=== PATIENT | male | born 1945 | race Caucasian/White ===

== ENCOUNTER 2017-06-26 11:26 | Emergency (ER) | payer OTHER ==
[~2017-06-26] VITALS: Ht 175.3 cm; Wt 95.2 kg
[~2017-06-26 11:26] MED LIST: ASPEC81 PO; ATOR-24 PO; LISI-725 PO; METO-217 PO; PRLSR20 PO
[2017-06-26 11:30] VITALS: Ht 175.3 cm; Wt 95.2 kg
--- NOTE | 2017-06-26 12:03 | EMERGENCY ROOM VISIT NOTE ---
History Report prepared by Jeanne: Sekou Garcia Under the Supervision of: Dr. Merle Patel D.O. First contact with patient: 11:36 Chief Complaint: CHEST PAIN Stated Complaint: CHEST DISCOMFORT Nursing Triage Summary: pt reports chest pain when doing nothing has hx of stents. blocked 20%. pain starts just above heart radiates up neck and into left shoulder . nitro 2nd dose helped pain 1st dose did nothing. feels nauseated. pt reports pain has been ongoing for approx 1 month. "pain happens when sitting still but does not bother him when working, cutting down trees." History of Present Illness The patient is a 71 year old male who presents to the Emergency Room with complaints of intermittent left side chest pain that occurred prior to arrival while feeding donkeys [place]. He states that he does not take any medication to resolve the symptoms. He states pain radiates up to his neck and into his left shoulder. Patient denies any pain in arms and back. Patient adds that he has had this pain for the past 3 weeks but it has not been during exertion but during rest and typically resolves itself after an amount of time, but today it remained longer than usual. He states he has a history of 5 cardiac stents. 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 In addition, he states that he associated urinary problems. He describes it as "feeling like he has to push it out". Source of History: patient Onset: 1 day ago Position: chest Timing: intermittent Associated Symptoms: + neck pain, + urinary symptoms (feels like "he has to push it out") Review of Systems See HPI for pertinent positives & negatives. A total of 10 systems reviewed and were otherwise negative. 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 Family History FHx: heart disease Social History Smoking Status: Never Smoker Alcohol Use: none Marital Status: Housing Status: lives with significant other Current/Historical Medications Scheduled Aspirin (Aspirin Ec), 81 MG PO AMPM Atorvastatin (Lipitor), 40 MG PO DAILY Lisinopril/Hctz (Zestoretic 20MG/12.5MG), 1 TAB PO DAILY Metoprolol Succinate (Toprol Xl), 50 MG PO DAILY Allergies Coded Allergies: No Known Allergies (Verified , 09/19/15) Physical Exam Vital Signs Date Time Temp Pulse Resp B/P (MAP) Pulse Ox O2 Delivery O2 Flow Rate FiO2 06/26/17 15:52 36.7 62 18 143/70 96 06/26/17 14:44 143/70 06/26/17 13:36 62 18 140/76 06/26/17 12:09 73 06/26/17 11:30 36.7 86 18 179/80 96 Room Air Physical Exam GENERAL: alert, well appearing, well nourished, no distress, non-toxic HEENT: Poor dentition. EYE EXAM: normal conjunctiva, PERRL and EOM's grossly intact OROPHARYNX: no exudate, no erythema, lips, buccal mucosa, and tongue normal and mucous membranes are moist NECK: supple, no nuchal rigidity, no adenopathy, non-tender LUNGS: Clear to auscultation. Normal chest wall mechanics CHEST: No reproducible chest and shoulder pain. HEART: no murmurs, S1 normal and S2 normal ABDOMEN: abdomen soft, non-tender, normo-active bowel sounds, no masses, no rebound or guarding. BACK: Back is symmetrical on inspection and there is no deformity, no midline tenderness, no CVA tenderness. 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 SKIN: no rashes and no bruising UPPER EXTREMITIES: upper extremities are grossly normal. LOWER EXTREMITIES: No pitting edema. NEURO EXAM: Normal sensorium, cranial nerves II-XII grossly intact, normal speech, no gross weakness of arms, no gross weakness of legs. Medical Decision & Procedures ER Provider Diagnostic Interpretation: Radiology results have been interpreted by the radiologist and reviewed by me. CHEST 2 VIEWS ROUTINE CLINICAL HISTORY: chest pain pain COMPARISON STUDY: 09/17/2015 FINDINGS: No evidence for cardiac enlargement. Mild emphysematous change. Increased density medial aspect right base felt to be prior to overlap artifact and is similar compared to the prior study. IMPRESSION: Emphysematous change. No acute process. The above report was generated using voice recognition software. It may contain grammatical, syntax or spelling errors. Electronically signed by: Rj Fan M.D. 06/26/2017 12:59 PM Laboratory Results 06/26/17 11:55 Red Blood Count 5.24, Mean Corpuscular Volume 89.3, Mean Corpuscular Hemoglobin 32.3, Mean Corpuscular Hemoglobin Concent 36.1, Mean Platelet Volume 11.6, Neutrophils (%) (Auto) 69.5, Lymphocytes (%) (Auto) 21.9, Monocytes (%) (Auto) 7.2, Eosinophils (%) (Auto) 0.9, Basophils (%) (Auto) 0.3, Neutrophils # (Auto) 4.07, Lymphocytes # (Auto) 1.28, Monocytes # (Auto) 0.42, Eosinophils # (Auto) 0.05, Basophils # (Auto) 0.02 06/26/17 11:55 Test 06/26/17 11:55 06/26/17 15:18 White Blood Count 5.85 K/uL (4.8-10.8) Red Blood Count 5.24 M/uL (4.7-6.1) Hemoglobin 16.9 g/dL (14.0-18.0) Hematocrit 46.8 % (42-52) Mean Corpuscular Volume 89.3 fL (80-100) Mean Corpuscular Hemoglobin 32.3 pg (25-34) Mean Corpuscular Hemoglobin Concent 36.1 g/dl (32-36) Platelet Count 146 K/uL (130-400) Mean Platelet Volume 11.6 fL (7.4-10.4) Neutrophils (%) (Auto) 69.5 % Lymphocytes (%) (Auto) 21.9 % Monocytes (%) (Auto) 7.2 % Eosinophils (%) (Auto) 0.9 % Basophils (%) (Auto) 0.3 % Neutrophils # (Auto) 4.07 K/uL (1.4-6.5) Lymphocytes # (Auto) 1.28 K/uL (1.2-3.4) Monocytes # (Auto) 0.42 K/uL (0.11-0.59) Eosinophils # (Auto) 0.05 K/uL (0-0.5) Basophils # (Auto) 0.02 K/uL (0-0.2) RDW Standard Deviation 41.9 fL (36.4-46.3) RDW Coefficient of Variation 12.9 % (11.5-14.5) Immature Granulocyte % (Auto) 0.2 % Immature Granulocyte # (Auto) 0.01 K/uL (0.00-0.02) Prothrombin Time 11.4 SECONDS (9.0-12.0) Prothromb Time International Ratio 1.1 (0.9-1.1) D-Dimer 310 ug/L FEU (0-500) Anion Gap 10.0 mmol/L (3-11) Est Creatinine Clear Calc Drug Dose 80.9 ml/min Estimated GFR () 93.5 Estimated GFR (Non- 80.7 BUN/Creatinine Ratio 15.3 (10-20) Calcium Level 9.0 mg/dl (8.5-10.1) Total Bilirubin 0.6 mg/dl (0.2-1) Aspartate Amino Transf (AST/SGOT) 32 U/L (15-37) Alanine Aminotransferase (ALT/SGPT) 54 U/L (12-78) Alkaline Phosphatase 99 U/L (45-117) Troponin I < 0.015 ng/ml (0-0.045) Total Protein 7.3 gm/dl (6.4-8.2) Albumin 4.0 gm/dl (3.4-5.0) Globulin 3.3 gm/dl (2.5-4.0) Albumin/Globulin Ratio 1.2 (0.9-2) Bedside Troponin I < 0.030 ng/ml (0-0.045) Laboratory results per my review. ECG Indication: chest pain Rate (beats per minute): 73 Rhythm: sinus rhythm Findings: no acute ischemic change, other (Normal axis. Normal interval) Change: no significant change ED Course 1150: The patient was evaluated in room A2. A complete history and physical exam was performed. 1406: I reassessed patient who states no occurrence of any pain. I updated him on his results. 1536: Upon reevaluation, the patient is feeling better. I discussed the findings and the treatment plan with the patient. He verbalizes agreement and understanding. He was discharged home. Medical Decision Differential diagnosis: Etiologies such as cardiac ischemia, aortic dissection, pulmonary embolism, pneumonia, pneumothorax, musculoskeletal, infections, pericarditis, myocarditis , esophageal rupture, gastrointestinal, as well as others were entertained. Patient with significant prior cardiac history, although recent description of symptoms are nonexertional. No other recent illness or shortness of breath to suggest pneumonia, effusion, congestive heart failure, or PE. Patient had no recurrent pain during observation time here. Patient with 2 negative troponins second one being greater than 8 hours from onset of pain. Case discussed with Dr. Saba as a precaution given patient's prior cardiac history, feels of both troponins negative and patient has no recurrent pain, he is safe to be discharged and follow closely the office. Patient counseled at length need for close follow-up in the office with Dr. Maher. Discussed at length symptoms to watch and return for, continued use of medications, he verbalized understanding was agreeable with plan. Advised follow-up with his family doctor or urology regarding his urinary complaints. Medication Reconcilliation Current Medication List: was personally reviewed by me Blood Pressure Screening Patient's blood pressure: Elevated blood pressure Blood pressure disposition: Elevated BP felt to be situational Consults Time Called: 1524 Consulting Physician: Dr. Saba - Hospitalist Returned Call: 1526 I reviewed the patient's case with Dr. Saba. I discussed with him repeating a Troponin and discharging the patient if normal. He will then evaluate the patient for further management. Impression Primary Impression: Chest pain Scribe Attestation The scribe's documentation has been prepared under my direction and personally reviewed by me in its entirety. I confirm that the note above accurately reflects all work, treatment, procedures, and medical decision making performed by me. Departure Information Dispostion Home / Self-Care Referrals Juliana Philippe M.D. (PCP) Forms Call Back Authorization, HOME CARE DOCUMENTATION FORM, IMPORTANT VISIT INFORMATION Patient Instructions Chest Pain - [facility], [facility] Additional Instructions Please call Dr. Maher's office tomorrow to schedule an appointment as soon as possible. Please continue taking your regular medications. If you have any recurrent episodes of chest pain, shoulder pain, neck pain please return the emergency room, or if you develop trouble breathing, sweats, dizziness, vomiting , fevers, worsening cough, back pain, or you've any other new concerns, please return the emergency room immediately. Problem Qualifiers Primary Impression: Chest pain Chest pain type: unspecified Qualified Codes: R07.9 - Chest pain, unspecified
[2017-06-26 12:28] LABS: BASO % 0.3 %; BASO ABS # 0.02 K/uL (0-0.2); EOS % 0.9 %; EOS ABS # 0.05 K/uL (0-0.5); HEMATOCRIT 46.8 % (42-52); HEMOGLOBIN 16.9 g/dL (14.0-18.0); IG# 0.01 K/uL (0.00-0.02); LYMPH % 21.9 %; LYMPH ABS # 1.28 K/uL (1.2-3.4); MEAN CELL VOLUME 89.3 fL (80-100); MEAN CORPUSCULAR HEMOGLOBIN 32.3 pg (25-34); MEAN CORPUSCULAR HGB CONC 36.1 g/dl (32-36); MEAN PLATELET VOLUME 11.6 fL (7.4-10.4); MONO % 7.2 %; MONO ABS # 0.42 K/uL (0.11-0.59); NEUT % 69.5 %; NEUT ABS # 4.07 K/uL (1.4-6.5); PLATELET COUNT 146 K/uL (130-400); RED CELL DISTRIBUTION WIDTH CV 12.9 % (11.5-14.5); RED CELL DISTRIBUTION WIDTH SD 41.9 fL (36.4-46.3); WHITE BLOOD COUNT 5.85 K/uL (4.8-10.8)
[2017-06-26 12:35] LABS: INR 1.1 (0.9-1.1)
[2017-06-26 12:46] LABS: ALT/SGPT 54 U/L (12-78); BLOOD UREA NITROGEN 14 mg/dl (7-18); CARBON DIOXIDE 24 mmol/L (21-32); CREATININE 0.94 mg/dl (0.60-1.40); GLUCOSE 108 mg/dl (70-99); POTASSIUM 3.7 mmol/L (3.5-5.1); SODIUM 137 mmol/L (136-145)
[2017-06-26 12:51] LABS: ALKALINE PHOSPHATASE 99 U/L (45-117); AST/SGOT 32 U/L (15-37); TOTAL PROTEIN 7.3 gm/dl (6.4-8.2)
--- NOTE | 2017-06-26 13:00 | DIAGNOSTIC IMAGING REPORT ---
CHEST 2 VIEWS ROUTINE CLINICAL HISTORY: chest pain pain COMPARISON STUDY: 09/17/2015 FINDINGS: No evidence for cardiac enlargement. Mild emphysematous change. Increased density medial aspect right base felt to be prior to overlap artifact and is similar compared to the prior study. IMPRESSION: Emphysematous change. No acute process. The above report was generated using voice recognition software. It may contain grammatical, syntax or spelling errors. Electronically signed by: Rj Fan M.D. 06/26/2017 12:59 PM Dictated Date/Time: 06/26/2017 12:58 PM
[2017-06-26] MEDS ORDERED: ASPI81TA28 PO (13:08)
[2017-06-26] MEDS ORDERED: LISI-787 PO (13:08)
[2017-06-26 15:52] VITALS: BP 143/70; PULSE 62; TEMP 36.7; O2SAT 96
== END 2017-06-26 15:53 | disposition home or self-care (01) ==
LOC: C.EDB 11:29 → C.EDA 15:53
DX: R07.9 Chest pain, unspecified (principal); I10 Essential (primary) hypertension; I51.9 Heart disease, unspecified; K57.90 Diverticulosis of intestine, part unspecified, without perforation or abscess without bleeding; Z79.82 Long term (current) use of aspirin; Z79.899 Other long term (current) drug therapy; Z82.49 Family history of ischemic heart disease and other diseases of the circulatory system